=== PATIENT | female | born 1965 ===

== ENCOUNTER 2019-06-18 13:45 | Observation (INO) ==
[2019-06-18 15:41] LABS: Basophils # 0.1 K/mcL (0.0-0.2); Basophils % 0.9 %; Eosinophils # 0.1 K/mcL (0.0-0.6); Eosinophils % 1.3 %; Hematocrit 39.3 % (35.3-44.9); Hemoglobin 13.3 g/dL (11.5-15.4); Immature Granulocytes % 0.6 % (0-4); Lymphocytes # 3.2 K/mcL (0.6-4.6); Lymphocytes % 46.9 %; Mean Corpuscular HGB Conc 33.8 g/dL (31.6-35.5); Mean Corpuscular Hemoglobin 33.4 pg (28.0-33.3); Mean Corpuscular Volume 98.7 fL (83.0-100.0); Mean Platelet Volume 9.9 fL (9.4-12.4); Monocytes # 0.6 K/mcL (0.0-1.3); Monocytes % 8.7 %; Neutrophils # 2.9 K/mcL (1.6-8.9); Platelet Count 359 K/mcL (140-400); Red Blood Count 3.98 M/mcL (3.82-4.97); Red Cell Distribution Width 11.7 % (11.5-14.5); Segmented Neutrophils % 41.6 %; White Blood Count 6.9 K/mcL (4.3-11.1)
[2019-06-18] MEDS ORDERED: Ampicillin/Sulbactam 3,000 MG in 0.9 % Sodium Chloride Mini Bag 100 ML IVPB ONE ×2 (15:47→21:58)
--- NOTE | 2019-06-18 15:50 | Emergency Department Note ---
Disposition Clinical Impression: Cellulitis, Lymphangitis Disposition: Admitted As Inpatient Condition: Good Time of Disposition: 15:50 General Adult HPI - General Chief complaint: ED Extremity Problem,Nontraumatic Stated complaint: R arm infecton; sent by bone and joint Time Seen by Provider: 06/18/19 14:57 Source: patient Mode of arrival: ambulatory Limitations: no limitations Nursing Notes Reviewed: Yes Vital Signs Reviewed: Yes - History of Present Illness HPI Narrative: 53-year-old female in no significant past medical history presenting to the emergency department chief complaint of lesion to the right third digit. According to the patient x-ray 2 and half weeks ago she was gardening when she noticed a splinter in her finger. Over the past 2 weeks she has been trying to poke at it and private out. Last evening she noticed some swelling in the digit and this morning there was redness from the digit up to her arm towards her armpit. Patient was seen at an outside facility where a hand x-ray and ultrasound was completed that did not show any retained foreign body. They were concerned for flexor tenosynovitis and recheck to orthopedics here at [facility] and they agreed to transfer the patient here for further evaluation and treatment. Patient denies any fevers, chest pain or shortness of breath. Denies any nausea, vomiting at home. Pain Scale: 8 - Related Data Previous Rx's Medication Instructions Recorded Acetaminophen [Tylenol] 650 mg PO Q6HR PRN 15 Days #30 06/19/19 tablet Sulfamethoxazole/Trimeth DS 1 each PO BID 7 Days #14 tablet 06/19/19 [Bactrim DS] Allergies Allergy/AdvReac Type Severity Reaction Status Date / Time No Known Allergies Allergy Verified 06/18/19 15:25 All systems ED: reviewed and negative except as stated. Constitutional: Denies: fever Eyes: Reports: as per HPI ENT ED: Reports: as per HPI Cardiovascular: Denies: chest pain Respiratory: Denies: dyspnea Gastrointestinal: Denies: nausea, vomiting Genitourinary: Reports: as per HPI Musculoskeletal: Reports: as per HPI Integumentary: Reports: as per HPI Neurological: Reports: as per HPI Psychiatric: Reports: as per HPI Endocrine: Reports: as per HPI Hematological/Lymphatic: Reports: as per HPI Allergic/Immunologic: Reports: as per HPI Past Medical History - Past Medical History Attestation: Yes The following information was validated with the patient. 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 Absent: respiratory distress, wheezes - Cardiovascular Cardiovascular exam: Present: regular rate, normal rhythm, normal heart sounds - Abdominal Exam Abdominal exam: Present: soft, Non-Tender. Absent: distention, guarding, rebound - Extremities Exam Extremities exam: Present: other (Third digit on the right hand swollen circumferentially. Small area of scabbing on the mid third digit on the palmar aspect. Redness and pain with flexion. Redness tracking from the right mid forearm to the right axilla) - Neurological Exam Neurological exam: Present: alert, oriented X3 - Psychiatric Psychiatric exam: Present: normal affect - Skin Skin exam: Present: warm Course Course Narrative: 53-year-old female presenting with concern for flexor tenosynovitis of the third digit on the right hand. In the room patient is alert and oriented 3 and hemodynamically stable. Physical exam is significant for scab on the third digit with redness and swelling circumferentially. Patient is distally neurovascularly intact. There is redness streaking from the right mid forearm up to the right axilla. I spoke with the orthopedic physician operations management professionals Dr. Otto who is aware of the patient. He states the hand surgeon Dr. Alcaraz will be consult on the patient and to have the patient admitted to hospitalist service. We will provide the patient with a dose of vancomycin and Unasyn. Patient agrees with this plan. I spoke with the hospitalist on service Dr. Curry who agrees to accept the patient at this time. Vital Signs Temperature 97.9 F 06/18/19 13:46 Pulse Rate 69 06/18/19 13:46 Respiratory Rate 18 06/18/19 13:46 Blood Pressure 122/66 06/18/19 13:46 O2 Sat by Pulse Oximetry 97 06/18/19 13:46 Temperature 97.9 F 06/18/19 13:46 Pulse Rate 80 06/18/19 16:16 Respiratory Rate 18 06/18/19 13:46 Blood Pressure 102/63 06/18/19 16:16 O2 Sat by Pulse Oximetry 100 06/18/19 16:16 Oxygen Delivery Oxygen Delivery Room Air Medical Decision Making - Lab Data Result diagrams: 06/18/19 15:10 06/19/19 06:39 Lab Results 06/18/19 06/18/19 Range/Units 15:10 15:10 WBC 6.9 (4.3-11.1) K/mcL RBC 3.98 (3.82-4.97) M/mcL Hgb 13.3 (11.5-15.4) g/dL Hct 39.3 (35.3-44.9) % MCV 98.7 (83.0-100.0) fL MCH 33.4 H (28.0-33.3) pg MCHC 33.8 (31.6-35.5) g/dL RDW 11.7 (11.5-14.5) % Plt Count 359 (140-400) K/mcL MPV 9.9 (9.4-12.4) fL Immature Gran % 0.6 (0-4) % Seg Neutrophils % 41.6 % Lymphocytes % 46.9 % Monocytes % 8.7 % Eosinophils % 1.3 % Basophils % 0.9 % Neutrophils # 2.9 (1.6-8.9) K/mcL Lymphocytes # 3.2 (0.6-4.6) K/mcL Monocytes # 0.6 (0.0-1.3) K/mcL Eosinophils # 0.1 (0.0-0.6) K/mcL Basophils # 0.1 (0.0-0.2) K/mcL Sodium 140 (136-145) mEq/L Potassium 3.4 L (3.5-5.1) mEq/L Chloride 105 (98-107) mEq/L Carbon Dioxide 29 (23-29) mEq/L BUN 3 L (6-20) mg/dL Creatinine 0.62 (0.60-1.20) mg/dL Est GFR ( Amer) > 60 (> 60) Est GFR (Non-Af Amer) > 60 (> 60) BUN/Creatinine Ratio 5 L (6-26) Glucose 95 (70-105) mg/dL Calculated Osmolality 286 (280-300) Calcium 9.4 (8.6-10.3) mg/dL Attestation Statement - Attestation Attestation: I have seen this patient with the resident physician, I have personally evaluated this patient. I had reviewed the chart and document dictation by the resident physician and aM in agreement with the information documented by the resident physician. Please see documentation by the resident physician for complete chart including past medical history, family medical history, review of systems, current history and physical and laboratory and imaging studies. I was present for all procedures, provided direct supervision for all procedures, was present for the entirety of all procedures and provided direct g uidance during the procedures. Please see documentation by the resident physician for any procedures performed. I have reviewed all interpretations of EKGs, and reviewed all EKGs performed on patient's as well. I have also reviewed reports of imaging as provided by radiology.
--- NOTE | 2019-06-18 15:54 | Orthopedic Consult Note ---
Date of Encounter: 06/18/19 Time of Encounter: 16:30 Assessment and Plan (1) Cellulitis Current Visit: Yes Status: Acute Qualifiers: Site of cellulitis: extremity Site of cellulitis of extremity: upper extremity Laterality: right Qualified Code(s): L03.113 - Cellulitis of right upper limb (2) Lymphangitis Current Visit: Yes Status: Acute History of Present Illness Chief complaint: painful right finger HPI: Ms. Solomon is a 53 year old female presenting to [facility] after transfer from [facility]. She states she has had irritation to the right middle finger for nearly 2 weeks which started with getting a "bianca" in her finger which she states she is not sure now is still present secondary to her "picking at it" repeatedly. She states that she is agitated re: care today secondary to going to multiple locations from [facility] outpatient office to [place] and now [facility] sites for care of her finger. On exam she is resting comfortably on ED cot. She is alert and oriented x3. She is noted to be holding her right hand in upright position with middle finger held in partially flexed position. Inspection of finger reveals swelling of the disal and middle phalanx to the PIP. No significant erythema noted. There is an eschar measuring appx 3mm noted to volar aspect of DIP crease. No erythema noted to the hand. There is streaking erythema extending from appx wrist to axilla in a curvilinear fashion. She is noted to have tenderness to the area of swelling of the finger and mild tenderness to palpation to palm, but appears to be most tender in the right anticubital fossa along region of erythema. She is tender to palpation of the axilla with mild lymphadenopathy palpable of 3 lymph nodes in the axilla. She is able to nearly fully flex her fingers, extension nearly, though endpoint does reveal wincing. She has full wrist and elbow motion Cap refill <2 s [employer] strength intact. right middle finger phlegmon versus abscess with lymphangitis Patient states she is agitated and states considering not staying for further treatment. We did discuss that she is at risk of spreading bacteria and even sepsis if she is not able to receive antibiotics. Explained concern that she sh ould receive antibiotics for treatment of presentation and may be able to discharge on oral antibiotics, but only once she has received several doses of IV antibiotics. Case reviewed with Dr. Alcaraz who states that he would like to personally examine patient to determine surgery. I did discuss with patient possibility of bedside debridement, but she states several times, "I don't know, I just don't know". Until seen by Dr. Alcaraz, keep NPO Encouraged nursing staff to CHG bath and preop in case Dr. Alcaraz does recommend surgical intervention Patient has had difficulty with maintaining IV as nurse and patient states that she has "blown" at least 3, maybe 4 IVs today. Would recommend midline or PICC placement for IV access to reduce trauma and achieve administration of antibiotics. Will follow inpatient. Thank you for this consultation Past Med Surg Social Fam HX - Past Medical History Medical history: COPD Additional medical history: HIATAL HERNIA Psychiatric history: no psych history - Past Surgical History Additional surgical history: RT KNEE PROCEDURE, PARTIAL HYSTERECTOMY - Social History Smoking Status: Current every day smoker Smokeless Tobacco Status: No Alcohol use: none Drug use: none Medications and Allergies No Known Home Drugs 04/28/19 [History] Allergy/AdvReac Type Severity Reaction Status Date / Time No Known Allergies Allergy Verified 06/18/19 15:25 All Systems Reviewed: The remainder of the systems were reviewed and are negative Physical Exam - Constitutional Vitals: Temp Pulse Resp BP Pulse Ox 97.9 F 68 18 121/67 98 06/18/19 13:46 06/18/19 15:23 06/18/19 13:46 06/18/19 15:23 06/18/19 15:23 Results - Labs Result Diagrams: 06/18/19 15:10 06/18/19 15:10 Labs: Abnormal lab results MCH 33.4 pg (28.0-33.3) H 06/18/19 15:10 H & H 06/18/19 Range/Units 15:10 Hgb 13.3 (11.5-15.4) g/dL Hct 39.3 (35.3-44.9) % All other labs normal. Consult Discharge Plan - Plan Referrals: NONE,PCP [Primary Care Provider] -
[2019-06-18 16:05] LABS: BUN/Creatinine Ratio 5 (6-26); Blood Urea Nitrogen 3 mg/dL (6-20); Calcium 9.4 mg/dL (8.6-10.3); Carbon Dioxide 29 mEq/L (23-29); Chloride 105 mEq/L (98-107); Glucose 95 mg/dL (70-105); Osmolality,Calculated 286 (280-300); Potassium 3.4 mEq/L (3.5-5.1); Sodium 140 mEq/L (136-145); eGFR For African Americans > 60 (> 60); eGFR For Non-African Americans > 60 (> 60)
--- NOTE | 2019-06-18 16:16 | Emergency Department Note ---
Disposition Clinical Impression: Cellulitis, Lymphangitis Disposition: Admitted As Inpatient Condition: Good Forms: ED Satisfaction Letter Time of Disposition: 16:16 Extremity Problem HPI - General Chief complaint: ED Extremity Problem,Nontraumatic Stated complaint: R arm infecton; sent by bone and joint Time Seen by Provider: 06/18/19 14:57 Source: patient Mode of arrival: ambulatory Limitations: no limitations Nursing Notes Reviewed: Yes Vital Signs Reviewed: Yes - History of Present Illness Pain Scale: 8 - Related Data Home Medications Medication Instructions Recorded Confirmed No Known Home Drugs 04/28/19 04/28/19 Allergies Allergy/AdvReac Type Severity Reaction Status Date / Time No Known Allergies Allergy Verified 06/18/19 15:25 All systems ED: reviewed and negative except as stated. Review of Systems: As Per HPI Constitutional: Denies: fever Eyes: Reports: as per HPI ENT ED: Reports: as per HPI Cardiovascular: Denies: chest pain Respiratory: Denies: dyspnea Gastrointestinal: Denies: nausea, vomiting Genitourinary: Reports: as per HPI Musculoskeletal: Reports: as per HPI Integumentary: Reports: as per HPI Neurological: Reports: as per HPI Psychiatric: Reports: as per HPI Endocrine: Reports: as per HPI Hematological/Lymphatic: Reports: as per HPI Allergic/Immunologic: Reports: as per HPI Past Medical History - Past Medical History Medical history: Reports: COPD Psychiatric history: Reports: no psych history 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 - Social History Smoking Status: Current every day smoker Smokeless Tobacco Status: No Alcohol use: Reports: none Drug use: Reports: none Physical Exam - General Limitations: no limitations General appearance: alert, in no apparent distress Course Vital Signs Temperature 97.9 F 06/18/19 13:46 Pulse Rate 69 06/18/19 13:46 Respiratory Rate 18 06/18/19 13:46 Blood Pressure 122/66 06/18/19 13:46 O2 Sat by Pulse Oximetry 97 06/18/19 13:46 Temperature 97.9 F 06/18/19 13:46 Pulse Rate 68 06/18/19 15:23 Respiratory Rate 18 06/18/19 13:46 Blood Pressure 121/67 06/18/19 15:23 O2 Sat by Pulse Oximetry 98 06/18/19 15:23 Oxygen Delivery Oxygen Delivery Room Air Extremity Problem, Nontraumati - Lab Data Result diagrams: 06/18/19 15:10 06/18/19 15:10 Lab Results 06/18/19 06/18/19 Range/Units 15:10 15:10 WBC 6.9 (4.3-11.1) K/mcL RBC 3.98 (3.82-4.97) M/mcL Hgb 13.3 (11.5-15.4) g/dL Hct 39.3 (35.3-44.9) % MCV 98.7 (83.0-100.0) fL MCH 33.4 H (28.0-33.3) pg MCHC 33.8 (31.6-35.5) g/dL RDW 11.7 (11.5-14.5) % Plt Count 359 (140-400) K/mcL MPV 9.9 (9.4-12.4) fL Immature Gran % 0.6 (0-4) % Seg Neutrophils % 41.6 % Lymphocytes % 46.9 % Monocytes % 8.7 % Eosinophils % 1.3 % Basophils % 0.9 % Neutrophils # 2.9 (1.6-8.9) K/mcL Lymphocytes # 3.2 (0.6-4.6) K/mcL Monocytes # 0.6 (0.0-1.3) K/mcL Eosinophils # 0.1 (0.0-0.6) K/mcL Basophils # 0.1 (0.0-0.2) K/mcL Sodium 140 (136-145) mEq/L Potassium 3.4 L (3.5-5.1) mEq/L Chloride 105 (98-107) mEq/L Carbon Dioxide 29 (23-29) mEq/L BUN 3 L (6-20) mg/dL Creatinine 0.62 (0.60-1.20) mg/dL Est GFR ( Amer) > 60 (> 60) Est GFR (Non-Af Amer) > 60 (> 60) BUN/Creatinine Ratio 5 L (6-26) Glucose 95 (70-105) mg/dL Calculated Osmolality 286 (280-300) Calcium 9.4 (8.6-10.3) mg/dL Attestation Statement - Attestation Attestation: I have seen this patient with the resident physician, I have personally evaluated this patient. I had reviewed the chart and document dictation by the resident physician and aM in agreement with the information documented by the resident physician. Please see documentation by the resident physician for complete chart including past medical history, family medical history, review of systems, current history and physical and laboratory and imaging studies. I was present for all procedures, provided direct supervision for all procedures, was present for the entirety of all procedures and provided direct guidance during the procedures. Please see documentation by the resident physician for any procedures performed. I have reviewed all interpretations of EKGs, and reviewed all EKGs performed on patient's as well. I have also reviewed reports of imaging as provided by radiology. Patient presented emergency department with chief complaint of right hand and middle finger pain and redness spreading up her arm. Rollover week ago she had a foreign body splinter in her right middle finger, she has been trying to take it out and been picking at it for several days and thenincreased swelling of the finger and redness. She Went to an outside Emergency Department Was Given IV Vancomycin Had an X-Ray Basic Laboratory Studies That Were Negative She Had an Ultrasound Her Finger That Showed No Obvious Foreign Body or Abscess She Was Sent Orthopedic Clinic, They Were Unable to See Her and Sent Her to This Emergency Department. On Physical Examination She Does Appear to Have Likely Area of Phlegmon and Are Potentially a Small Early Abscess on the Palm Aspect of the Right Middle Finger, with Some Circumferential Swelling of the Middle Finger Especially over the DIP Joint and Middle Phalanx, but No Generalized Sausage Finger I Am Able to Completely Extend Her Third Digit, She Is Some Pain in the Finger but Does Not Express Severe Pain within the Palm. There Is Some Mild Tenderness of the Right Palm but No True Flexor Tenosynovitis on My Examination. There Does Not Appear to Be Any Significant Redness on the Dorsum of the Hand, However Approximately [address] the Forearm Patient Has Obvious Lymphangitic Streaking Starting and Then Spreads All Way to Her Armpit Initially Starts along the Dorsum of the Forearm Then Wraps around Anteriorly and Medially into the Axilla. Patient Chart Was Reviewed She Did Receive Vancomycin Only, I Ordered Unasyn As Well, We Consult Orthopedics, Patient Will Be Admitted to the Hospital for Further Management of Cellulitis with Lymphangitis with Potential Need for Debridement of Area of What Appears to Be Phlegmonous Abnormality on the Right Middle Finger.
[2019-06-18 16:38] LABS: C-Reactive Protein < 5 mg/L (Less than 10)
[2019-06-18] MEDS ORDERED: Ondansetron 4 MG/2 ML VIAL IVP PRN ×2 (16:40→21:58)
[2019-06-18] MEDS ORDERED: traMADol 50 MG TABLET PO PRN ×2 (16:40→21:58)
[2019-06-18] MEDS ORDERED: Naloxone 0.4 MG/ML INJ IVP PRN ×2 (16:40→21:58)
--- NOTE | 2019-06-18 17:32 | Internal Med History&Physical ---
Date of Encounter: 06/18/19 Time of Encounter: 17:26 Internal Medicine - H&P: HPI Chief complaint: edema, tenderness of the right middle finger. Admitted From: Home History of present illness: Ms. Solomon is a 53 year old female PMH of tobacco abuse for longer than 30 years. Patient presented to the ED due to pain and redness on the right middle finger. Patient reported about a week ago while she was picking up something at home a piece of hay got into her right middle finger, at that time she saw a small amount of blood coming out of the finger, but could not removed any foreign object from the finger. But she reports, since this happened she has developed a yellowish raised lesion on the right middle finger which she had tried to drain by squeezing at it but nothing comes out. Reported today she decided to come to the ED because today she notice mild generalized erythema and edema of her right upper extremity. denies fever, chills, nausea or vomiting. Denies IVDU. Past Med Surg Social Fam HX - Past Medical History Medical history: COPD Additional medical history: HIATAL HERNIA Psychiatric history: no psych history - Past Surgical History Additional surgical history: RT KNEE PROCEDURE, PARTIAL HYSTERECTOMY - Social History Smoking Status: Current every day smoker Smokeless Tobacco Status: No Alcohol use: none Drug use: none Internal Medicine - H&P: Meds No Known Home Drugs 04/28/19 [History] Allergy/AdvReac Type Severity Reaction Status Date / Time No Known Allergies Allergy Verified 06/18/19 15:25 All Systems PM: A 10-system review of systems was performed and is negative for pertinent findings except as documented above in the HPI. - Constitutional Constitutional: no chills, no fever(s) - EENT Eyes: no blurry vision - Cardiovascular Cardiovascular ROS IM: no chest pain, no edema, no lightheadedness, no palpitations, no paroxysmal nocturnal dyspnea - Respiratory Respiratory: no cough - Gastrointestinal Gastrointestinal: no abdominal pain, no nausea, no vomiting - Genitourinary Genitourinary: no dysuria, no urinary urgency - Musculoskeletal Musculoskeletal ROS IM: no arthralgias, no joint swelling, no limited range of motion, no muscle weakness, no neck pain, no numbness - Integumentary Integumentary IM: erythema - Neurological Neurological ROS: no headache(s), no tingling, no weakness - Psychiatric Psychiatric: no anxiety, no hallucinations, no irritability - Endocrine Endocrine IM: no cold intolerance, no excessive sweating - Hematologic/Lymphatic Hematologic/Lymphatic: no lymphadenopathy - Allergic/Immunologic Allergic/Immunologic: no GI upset with certain foods - Constitutional Vitals: Temp Pulse Resp BP Pulse Ox 97.9 F 80 18 102/63 100 06/18/19 13:46 06/18/19 16:16 06/18/19 13:46 06/18/19 16:16 06/18/19 16:16 Exam: Vitals: Reviewed General: Alert and oriented x4. In mild distress due to erythema and tenderness of the right upper extr. Cardiovascular: RRR, normal S1 & S2, no rubs, murmurs or gallops. Lungs: CTA b/l, no wheezes or crackles. Abdomen: Soft, non-tender, no rigidity. Extremities: mild erythema on the right upper extr. raised lesion on the right middle finger. Neurological: Normal cognition and motor skills. Rest of the physical exam is non contributory Internal Med - H&P Results - Labs CBC & Chem 7: 06/18/19 15:10 06/18/19 15:10 Labs: Short CBC 06/18/19 Range/Units 15:10 WBC 6.9 (4.3-11.1) K/mcL Hgb 13.3 (11.5-15.4) g/dL Hct 39.3 (35.3-44.9) % Plt Count 359 (140-400) K/mcL Neutrophils # 2.9 (1.6-8.9) K/mcL BMP 06/18/19 15:10 Sodium 140 Potassium 3.4 L Chloride 105 Carbon Dioxide 29 BUN 3 L Creatinine 0.62 Glucose 95 Calcium 9.4 - Impressions ITS Impressions Forearm X-Ray 06/18/19 15:43 IMPRESSION: No acute radiographic abnormality. D/ / Robb Morocho / Robb Morocho Interpreting Provider: Robb Morocho - Diagnostic Studies Other Images Status: image reviewed by me (x-ray of the right forearm: no abnormality.) - Assessment and Plan (1) Tenosynovitis of finger Current Visit: Yes Status: Acute Assessment and plan: patient started on broad spectrum IV antibiotics. Ortho consulted. recommendations appreciated. Tramadol for pain control. (2) DVT prophylaxis Current Visit: Yes Status: Acute Assessment and plan: heparin subq. (3) Tobacco abuse Current Visit: Yes Status: Acute Assessment and plan: patient with a Hx of 1ppd for longer than 20 years. smoking cessation counseling and education provided. bronchodilators Q4RT PRN added for shortness of breath. (4) Cellulitis Current Visit: Yes Status: Acute Assessment and plan: patient with mild erythema and edema of the right upper extr. started on broad spectrum IV antibiotics. US of the upper extr ordered to r/o svt or dvt. Qualifiers: Site of cellulitis: extremity Site of cellulitis of extremity: upper extremity Laterality: right Qualified Code(s): L03.113 - Cellulitis of right upper limb - Time Spent With Patient Total time spent is greater than 50% in coordination of care (as documented) at patient's floor/unit and/or counseling patient: Greater than 35 minutes (45)
[2019-06-18 17:34] LABS: Prothrombin Time 11.9 Seconds (9.4-12.1)
[2019-06-18 17:36] LABS: Activated Partial Thrombo Time 31.7 Seconds (26.0-36.0)
[2019-06-18] MEDS ORDERED: Ipratropium/Albuterol Neb 3 ML IH PRN ×2 (17:39→21:58)
--- NOTE | 2019-06-18 19:45 | Orthopedics Progress Note ---
Date of Encounter: 06/18/19 Time of Encounter: 19:41 Subjective Interval history: S: Patient is a 53-year-old female who was admitted to the hospitalist due to her right long finger. She said a few weeks ago she noticed a splint or along the volar aspect of the right long finger at the distal interphalangeal joint flexion crease. She began to pick at it over the course of the last several d ays. She went to the [facility] emergency department where she was subsequently transferred to our facility and admitted to the hospitalist for further evaluation due to lymphangitis extending to the right shoulder. I was asked to evaluate the right long finger. She does have sharp and achy pain isolated to the right long finger centered over the volar distal interphalangeal joint crease but she says it is quite mild. No significant modifying factors. No numbness, tingling, or any other associated signs or symptoms. O: Afebrile and vital signs are stable. Inspection shows minimal swelling of the right long finger with what appears to be a callus at the volar aspect of the digit centered over the distal interphalangeal joint flexion crease. Mild surrounding redness. There is a white sheen underneath likely consistent with a small amount of purulence. No tenderness about the flexor tendon sheath proximal to this. She can grossly flex and extend the digits with some limitation of the long finger due to the pain. The patient can actively flex and extend all digits, extend the thumb, cross the index and long fingers, make an okay sign, and oppose the thumb. The fingertips are all grossly sensate and well-perfused, and the radial artery pulse is 2+. X-rays of the right hand do not show any fractures or dislocations A: Foreign body/abscess of the right long finger P: My recommendation is for exploration which can be done at the bedside under local anesthetic, though the patient declines and is hoping for sedation. We will therefore do this in the operating room under MAC anesthesia. The risks discussed included but were not limited to stiffness, bleeding, infection, blood clots, damage to neurovascular structures, tendons, ligaments, and bone. Also discussed was the risk of continued symptoms and possible need for further procedures. I did discuss the anesthesia risks including stroke, heart attack, and . I did discuss the reasonable, foreseeable postoperative course with the patient. The patient did wish to proceed and consent was obtained. Objective Vital signs: Vital Signs Temp Pulse Resp BP Pulse Ox 06/18/19 16:16 80 102/63 100 06/18/19 15:23 68 121/67 98 06/18/19 13:46 97.9 F 69 18 122/66 97 Intake and Output 06/18/19 06/18/19 06/18/19 07:59 15:59 23:59 Other: Weight 48.988 kg Patient Weight 06/18/19 23:59 Weight 48.988 kg - Labs CBC & BMP: 06/18/19 15:10 06/18/19 15:10 Labs: Abnormal lab results MCH 33.4 pg (28.0-33.3) H 06/18/19 15:10 Potassium 3.4 mEq/L (3.5-5.1) L 06/18/19 15:10 BUN 3 mg/dL (6-20) L 06/18/19 15:10 BUN/Creatinine Ratio 5 (6-26) L 06/18/19 15:10 Consult Discharge Plan - Plan Referrals: NONE,PCP [Primary Care Provider] -
--- NOTE | 2019-06-18 21:13 | Anesthesia Evaluation PreOp ---
Date of Encounter: 06/18/19 Time of Encounter: 21:10 - Past History Planned Operation: Incision Drainage Rt Middle Finger Cardiac History: Denies any Significant Hx Pulmonary History: Smoker, COPD HIDE SELECTOR History: Denies Any Significant HX Other Medical History: Denies Any Significant HX Anesthesia History: No Prior Anesthetic Complications : No Alcohol Use: none Drug use: none Medications and Allergies No Known Home Drugs 04/28/19 [History] Allergy/AdvReac Type Severity Reaction Status Date / Time No Known Allergies Allergy Verified 06/18/19 15:25 - Meds/Allergy Pre-op Review Medications Reviewed: Yes Allergies Reviewed: Yes Beta Blockers on Current Med List: No Anesthesia Results - Labs 06/18/19 15:10 06/18/19 15:10 Anesthesia Exam Vital Signs/O2 Sat/Glucose, Most Current Temp Pulse Resp BP Pulse Ox 06/18/19 20:00 98.3 F 56 17 108/63 96 Height: 5'7 Weight: 108 lbs NPO (# of Hours): MN Pain Scale: 0 - HEENT Pupil (Motor): Pupils equal, EOMI Mallampati: II Teeth: Edentulous Oral Opening: Less than or equal to 3 - HIDE SELECTOR LOC: Oriented HIDE SELECTOR Motor: Normal RUE, Normal LUE, Normal RLE, Normal LLE, Normal Face HIDE SELECTOR Sensory: Normal: RUE, LUE, RLE, LLE, Face - Cardiac Rhythm: Regular Murmur: None JVD: No Carotid Bruit: No - Pulmonary Breath Sounds: bilateral Clear Respiratory Effort: Symmetrical Anesthesia Assess/Plan ASA Score: 2 Level of consciousness: Cooperative, Oriented Anesthetic Plan: MAC Autologous Blood: No Monitoring Plan: Standard Monitors Recovery Plan: Other (Discussed MAC, agrees to proceed)
[2019-06-18] MEDS ORDERED: *HR* FentaNYL (PF) 100 MCG/2 ML VIAL ONE (21:17)
[2019-06-18] MEDS ORDERED: *HR* Propofol 200 MG/20 ML VIAL IVP ONE (21:17)
[2019-06-18] MEDS ORDERED: Lidocaine -MPF 2% 2 ML VIAL ONE (21:17)
[2019-06-18] MEDS ORDERED: *HR* Midazolam HCl 2 MG/2 ML VIAL ONE (21:19)
--- NOTE | 2019-06-18 21:50 | Orthopedic Operative Note ---
Date of procedure: 06/18/19 Procedure: OPERATIVE REPORT SURGEON: Michele Alcaraz MD PREOPERATIVE DIAGNOSIS: Right long finger infection POSTOPERATIVE DIAGNOSIS: Right long finger subcutaneous abscess PROCEDURE: Incision, drainage, irrigation, debridement of the right long finger ANESTHESIA: MAC/local SPECIMENS: Cultures of the right long finger for aerobic and anaerobic specimens PREOPERATIVE NOTE The surgical plan was reviewed with the patient. The risks, benefits, alternatives, and potential complications of this procedure were discussed with the patient including injury to veins, arteries, nerves, tendons, ligaments, and bone. Also discussed were the risks of infection, bleeding, pain, blood clots, the possible need for a blood transfusion, the possible need for further procedures, heart attack, stroke, and . Additional risks include the need for further debridement. All of this was explained in simple terms, and the patient verbalized understanding and wished to proceed. Consent was given to proceed with surgery. PROCEDURE: The patient was seen in the preoperative holding area where the identify and the consent were confirmed. The right long finger was marked. Final questions were answered. The patient was brought back to the operating room and placed supine on the operating room table. A huddle was performed with the patient and all vital surgical team members confirming patient identity, the correct procedure, and the correct operative site. MAC/local was administered. The operative extremity was prepped and draped in the usual sterile fashion. A surgical time out was performed immediately preceding the incision with all personnel in the operating room to confirm patient identity, the correct operative site and extremity, correct radiographic studies, availability of appropriate surgical equipment, and agreement on the planned procedure. The tourniquet was inflated without examination. There is a small 3 mm circular area of hyper granulation tissue which was spread open decompressing a small amount of purulent material. This was swabbed for culture. The hyper granulation tissue is sharply excised. A small Mariano incision was made in this area and a full-thickness flap was elevated to evaluate the flexor tendon sheath which was intact and did not have any fluid. There was no concern for purulent flexor tenosynovitis. The finger was flushed with copious amounts of saline and loosely closed with 4-0 nylon stitches. This did leave behind a 3 mm circular area which was packed with quarter-inch iodoform packing. A soft, sterile dressing was applied. The instrument, sponge, and needle counts were correct after wound closure. POST OPERATIVE PLAN: Continue antibiotics per the primary team. Anticipate D/C on oral antibiotics in next 24 hours. Was there an volunteer assistant present: No Estimated blood loss (cc): 1
[2019-06-18] MEDS ORDERED: *HR* Heparin 5,000 UNIT/ML VIAL SQ SCH (22:00)
--- NOTE | 2019-06-18 22:00 | Anesthesia Evaluation Post Op ---
Date of Encounter: 06/18/19 Time of Encounter: 22:00 - Vital Signs Vital Signs: Vital Signs/O2 Sat/Glucose, Most Current Temp Pulse Resp BP Pulse Ox 06/18/19 20:00 98.3 F 56 17 108/63 96 - Lungs Lungs: Clear Ascult./Percussion - Airway Airway: Non-obstructed - Cardiovascular Regular Rate - Mental Status Mental Status: Alert & Oriented, Answers Appropriately - Pain Pain Scale: 0 - Nausea Vomiting Nausea Vomiting: Not Present - Hydration Hydration: NPO - Discharge PostOp Status: Transfer Patient to floor
[2019-06-18] MEDS: Clindamycin 600 MG/50 ML 600 MG/50 ML IV.SOLN IVPB SCH (23:12)
[2019-06-18] MEDS: *HR* Heparin 5,000 UNIT/ML VIAL SQ SCH (23:12)
[2019-06-19] MEDS ORDERED: Clindamycin 600 MG/50 ML 600 MG/50 ML IV.SOLN IVPB SCH
[2019-06-19] MEDS ORDERED: 0.9 % Sodium Chloride 500 ML IVC ONE (02:53)
[2019-06-19] MEDS: Acetaminophen 325 MG TABLET PO PRN ×2 (03:05→09:57)
[2019-06-19] MEDS: *HR* Heparin 5,000 UNIT/ML VIAL SQ SCH (05:34)
[2019-06-19 07:25] LABS: BUN/Creatinine Ratio 8 (6-26); Blood Urea Nitrogen 5 mg/dL (6-20); Calcium 8.9 mg/dL (8.6-10.3); Carbon Dioxide 26 mEq/L (23-29); Chloride 108 mEq/L (98-107); Chol/HDL Ratio 4.9 (0-4.9); Cholesterol 112 mg/dL (< 200); Glucose 97 mg/dL (70-105); HDL Cholesterol 23 mg/dL (40-59); LDL Cholesterol,Calculated 73 mg/dL (0-99); Osmolality,Calculated 285 (280-300); Phosphorous 3.1 mg/dL (2.7-4.5); Potassium 4.2 mEq/L (3.5-5.1); Sodium 139 mEq/L (136-145); Triglycerides 79 mg/dL (< 150); eGFR For African Americans > 60 (> 60); eGFR For Non-African Americans > 60 (> 60)
--- NOTE | 2019-06-19 07:49 | Orthopedics Progress Note ---
Date of Encounter: 06/19/19 Time of Encounter: 07:46 Subjective Interval history: S: Patient is seen today and has no complaints. Expected pain to the right long finger. O: Afebrile and vital signs are stable Dressing is taken down and packing is pulled. Mild bloody drainage. No purulence. Lymphangitic streaking has resolved. Neurovascularly intact distally A: Post I&D of the right long finger P: Doing well clinically. Orthopedically stable for discharge on an oral antibiotic. Daily dressing changes and soapy soaks to the right long finger. Objective Vital signs: Vital Signs Temp Pulse Resp BP Pulse Ox 06/19/19 05:26 100/67 06/19/19 03:48 98.1 F 61 16 94/56 91 06/19/19 02:35 96/62 06/19/19 01:10 98.4 F 88 14 94/52 96 06/18/19 23:15 98.8 F 82 16 92/68 92 06/18/19 22:45 98.4 F 78 16 101/64 92 06/18/19 22:16 98.2 F 88 16 107/74 94 06/18/19 20:00 98.3 F 56 17 108/63 96 06/18/19 16:16 80 102/63 100 06/18/19 15:23 68 121/67 98 06/18/19 13:46 97.9 F 69 18 122/66 97 Intake and Output 06/18/19 06/18/19 06/19/19 15:59 23:59 07:59 Output Total Balance -1 / -1 Output: Estimated Blood Loss Other: Weight 48.988 kg 49 kg Patient Weight 06/19/19 23:59 Weight 49 kg - Labs CBC & BMP: 06/18/19 15:10 06/19/19 06:39 Labs: Abnormal lab results MCH 33.4 pg (28.0-33.3) H 06/18/19 15:10 Potassium 3.4 mEq/L (3.5-5.1) L 06/18/19 15:10 Chloride 108 mEq/L (98-107) H 06/19/19 06:39 BUN 5 mg/dL (6-20) L 06/19/19 06:39 BUN/Creatinine Ratio 5 (6-26) L 06/18/19 15:10 HDL Cholesterol 23 mg/dL (40-59) L 06/19/19 06:39 Consult Discharge Plan - Plan Additional Instructions: DISCHARGE INSTRUCTIONS Dr. Alcaraz DISCHARGE DIAGNOSIS/PROCEDURE Right long finger debridement and irrigation ACTIVITY: Avoid aggressive activities with arm in which you were operated. Okay to move your fingers which will be good exercise. WOUND CARE: Once a day takedown your dressing and soak the right middle finger and warm, soapy water and rinse clean. Place a new dressing. MEDICATIONS: Take oral antibiotic as directed by the hospitalist. FOLLOW-UP Follow-up with Dr. Alcaraz or Cherry Tavares PA-C at the office one week from the surgery date for a post operative evaluation. Call the office at [phone] to schedule or confirm your appointment. WHEN TO CALL THE DOCTOR OR WHEN TO SEEK CARE BEFORE YOUR APPOINTMENT 1. Excess swelling or increased numbness not made better by elevating the hand and moving the fingers. 2. Uncontrolled pain. 3. A color change in your hand or fingers. 4. Worsening redness or drainage. 5. Fevers over 100.5 degrees F or 38.1 degrees C. 6. Any symptoms that bring concern to you. Referrals: NONE,PCP [Primary Care Provider] -
[2019-06-19 07:59] VITALS: BP 104/68
--- NOTE | 2019-06-19 08:59 | Discharge Summary ---
- NOTES TO OUTPATIENT PROVIDER Notes to Outpatient Provider: Make an appointment to see Ortho within 7 days of hospital discharge. Orders not resulted at time of discharge: Pending orders 06/18/19 21:40 Culture,Anaerobic [] Routine Culture,Wound,with Gram Stain [] Routine Date of Encounter: 06/19/19 Time of Encounter: 08:56 - Discharge Diagnosis (1) Tenosynovitis of finger Priority: Primary Status: Ruled-out (2) DVT prophylaxis Priority: Secondary Status: Acute (3) Tobacco abuse Priority: Secondary Status: Acute (4) Cellulitis Priority: Primary Status: Resolved Qualifiers: Site of cellulitis: extremity Site of cellulitis of extremity: upper extremity Laterality: right Qualified Code(s): L03.113 - Cellulitis of right upper limb (5) Superficial venous thrombosis of right arm Priority: Primary Status: Acute (6) Subcutaneous abscess Priority: Primary Status: Acute Assessment and Plan: Right long finger subcutaneous abscess s/p Incision, drainage, irrigation, debridement of the right long finger Qualifiers: Site of cutaneous abscess: extremity Site of cutaneous abscess of extremity: hand Laterality: right Qualified Code(s): L02.511 - Cutaneous abscess of right hand (7) Protein-calorie malnutrition Priority: Secondary Status: Chronic Assessment and Plan: severe Qualifiers: Protein-calorie malnutrition severity: severe Qualified Code(s): E43 - Unspecified severe protein-calorie malnutrition Hospital course: Ms. Solomon is a 53 year old female PMH of tobacco abuse for longer than 30 years. Patient presented to the ED due to pain and redness on the right middle finger. Patient reported about a week ago while she was picking up something at home a piece of hay got into her right middle finger. Patient also reported pain and erythema on the right upper extremity. Patient was admitted to the hospital due to possible tenosynovitis of the right middle finger, and mild cellulitis on the right upper extr. Patient was managed with broad spectrum IV antibiotics. Venous dupplex of the upper extr: preliminary report positive for partial acute SVT in the right mid cephalic vein, Patient recommended warm compress and anti- inflammatory as needed.. Negative DVT bilaterally. Ortho consulted and patient found to have Right long finger subcutaneous abscess, underwent Incision, drainage, irrigation, debridement of the right long finger. There was no concern for purulent flexor tenosynovitis. right hand wound culture: No bacteria observed. Plan of care discussed with ortho and agreed on discharging the patient on oral antibiotics and to follow up as outpatient within 7 days of hospital discharge. - Time Spent with Patient Total time spent providing and/or coordinating discharge services: Time spent: Greater than 30 minutes (35) - Discharge Medications Prescriptions: New Sulfamethoxazole/Trimeth DS [Bactrim DS] 1 each PO BID 7 Days #14 tablet Acetaminophen [Tylenol] 650 mg PO Q6HR PRN 15 Days #30 tablet PRN Reason: Pain Home Medications: Acetaminophen [Tylenol] 650 mg PO Q6HR PRN 15 Days #30 tablet 06/19/19 [Rx] Sulfamethoxazole/Trimeth DS [Bactrim DS] 1 each PO BID 7 Days #14 tablet 06/19/19 [Rx] Allergies/Adverse Reactions: Allergy/AdvReac Type Severity Reaction Status Date / Time No Known Allergies Allergy Verified 06/18/19 15:25 Date of admission: 06/18/19 17:36 Primary care physician: PCP NONE Consults: 06/18/19 15:41 Consult to Orthopedic Surgery [CONS] Stat Consulting Provider: [facility] Reason for Consult: Flexor tenosynovitis Call Completed: Yes - Constitutional Vitals: Temp Pulse Resp BP Pulse Ox 98.1 F 63 18 104/68 93 06/19/19 06:54 06/19/19 06:54 06/19/19 06:54 06/19/19 06:54 06/19/19 06:54 Exam: Vitals: Reviewed General: Alert and oriented x4. No distress Cardiovascular: RRR, normal S1 & S2, no rubs, murmurs or gallops. Lungs: CTA b/l, no wheezes or crackles. Abdomen: Soft, non-tender, no rigidity. Extremities: Erythema on the right upper extr resolved. Neurological: No focal neurological abnormalities. Rest of the physical exam is non contributory - Patient Status Disposition: Home, Self-Care Condition: Good Functional capacity at discharge: independent ambulation Overall status at discharge: patient is back to baseline - Discharge Instructions Follow Up With: NONE,PCP [Primary Care Provider] - Michele Alcaraz MD [Partnered Physician] - 06/26/19 2:30 pm Additional Instructions: DISCHARGE INSTRUCTIONS Dr. Wiltfong DISCHARGE DIAGNOSIS/PROCEDURE Right long finger debridement and irrigation ACTIVITY: Avoid aggressive activities with arm in which you were operated. Okay to move your fingers which will be good exercise. WOUND CARE: Once a day takedown your dressing and soak the right middle finger and warm, soapy water and rinse clean. Place a new dressing. MEDICATIONS: Take oral antibiotic as directed by the hospitalist. FOLLOW-UP Follow-up with Dr. Alcaraz or Cherry Tavares PA-C at the office one week from the surgery date for a post operative evaluation. Call the office at [phone] to schedule or confirm your appointment. WHEN TO CALL THE DOCTOR OR WHEN TO SEEK CARE BEFORE YOUR APPOINTMENT 1. Excess swelling or increased numbness not made better by elevating the hand and moving the fingers. 2. Uncontrolled pain. 3. A color change in your hand or fingers. 4. Worsening redness or drainage. 5. Fevers over 100.5 degrees F or 38.1 degrees C. 6. Any symptoms that bring concern to you. - Diet and Activity Activity: resume usual activities as tolerated Diet: advance to your usual diet
[2019-06-19] MEDS: Clindamycin 600 MG/50 ML 600 MG/50 ML IV.SOLN IVPB SCH (10:00)
[2019-06-19] MEDS ORDERED: Sulfamethoxazole/Trimeth DS 1 EACH TABLET PO ONE (10:02)
== END 2019-06-19 11:03 | disposition home or self-care (01) ==
LOC: 3NENU 13:45 → EMEROOARM 13:45 → 3NENU 18:44
PROVIDERS: ADMIT Internal Medicine; ATTEND Internal Medicine